=== PATIENT | female | born 1970 | race Caucasian/White ===

== ENCOUNTER 2020-10-14 10:48 | Emergency (ER) | payer MEDICAID, SELFPAY ==
[2020-10-14 10:59] VITALS: BP 112/79; PULSE 87; RESP 18; TEMP 36.7; O2SAT 97; BMI 49.3
[2020-10-14 11:35] LABS: MANUAL DIFF FLAG NO
[2020-10-14 11:36] LABS: Basophils Percent Auto 0.7 % (0-2); Eosinophils Absolute Auto 0.1 X10*3/uL (0.0-0.4); Eosinophils Percent Auto 1.4 % (0-4); Hematocrit 39.4 % (37-47); Hemoglobin 12.9 g/dl (12.0-16.0); Imm Gran Abs Auto 0.02 X10*3/uL (0.00-0.03); Imm Gran Pct Auto 0.3 % (0.0-0.4); Lymphocytes Absolute Auto 1.9 X10*3/uL (1.2-4.9); Lymphocytes Percent Auto 33.1 % (20-40); Mean Corpuscular HGB Conc 32.7 g/dl (31.0-35.0); Mean Corpuscular Hemoglobin 27.5 pg (27.0-33.0); Mean Platelet Volume 10.8 fL (9.4-12.3); Monocytes Absolute Auto 0.4 X10*3/uL (0.1-1.2); Monocytes Percent Auto 6.3 % (2-11); Neutrophils Absolute Auto 3.3 X10*3/uL (2.0-8.3); Neutrophils Percent Auto 58.2 % (45-73); Platelet Count 222 X10*3/uL (160-400); Red Blood Count 4.69 X10*6/uL (4.20-5.50); Red Cell Distribution Width 12.7 % (11.0-16.0); White Blood Count 5.7 X10*3/uL (4.8-10.8)
[2020-10-14 12:04] LABS: Anion Gap 11 (12-20); Blood Urea Nitrogen 9 mg/dL (9-16); Calcium 9.2 mg/dL (8.4-10.2); Carbon Dioxide 25 mmol/L (22-29); Chloride 108 mmol/L (96-108); Creatinine Clr Calc Pharmacy 116.4; Estimated Glomerular Filt Rate > 60; Glucose Random 95 mg/dL (60-115); Potassium 4.1 mmol/L (3.3-5.1); Sodium 140 mmol/L (135-145)
== END 2020-10-14 14:01 | disposition left against medical advice (07) ==
PROVIDERS: Emergency Provider Emergency Medicine; PCP Internal Medicine
DX: R20.0 Anesthesia of skin (principal); R51.9 Headache, unspecified
CPT/HCPCS: 36415; 80048; 85025; 99282; 99283

== ENCOUNTER 2022-05-06 15:26 | Outpatient (REF) | payer MEDICARE, MEDICAID, SELFPAY ==
[2022-05-06 16:25] LABS: Influenza A PCR NEGATIVE (Negative); Influenza B PCR NEGATIVE (Negative); Resp Syncy Virus RNA Qual PCR NEGATIVE (Negative); SARS COV2 PCR INHOUSE NEGATIVE (Negative)
== END 2022-05-06 15:27 | disposition home or self-care (01) ==
LOC: HO.LNP 15:26
PROVIDERS: Visit Provider Physician Assistant Medical
DX: Z20.822 Contact with and (suspected) exposure to COVID-19 (principal); R05.9 Cough, unspecified
CPT/HCPCS: 0241U

== ENCOUNTER 2023-07-18 19:00 | Emergency (ER) | payer OTHER, SELFPAY ==
--- NOTE | ~2023-07-18 | CT_ITS ---
EXAMINATION: CT head/brain wo IV con CLINICAL INFORMATION: Reason for Exam headache COMPARISON: None. TECHNIQUE: Contiguous axial imaging was performed from the skull base to vertex without intravenous contrast. Sagittal and coronal reformatted images were obtained. This CT examination was performed using dose optimization techniques as appropriate, variously including the following: * Automated exposure control * Adjustment of mA and/or kV according to patient size (this includes techniques or standardized protocols for targeted exams where dose is matched to indication/reason for exam; i.e. extremities or head) Use of iterative reconstruction technique DLP: 642 mGy-cm FINDINGS: There is no evidence of acute intracranial hemorrhage. No mass-effect or ventricular shift is noted. No acute, territorial loss of gardner-white differentiation. The ventricles and sulci are appropriate in size and configuration for the patient's stated age. Partially empty sella turcica. No depressed calvarial fracture. Trace scattered mucosal thickening in the partially visualized paranasal sinuses. The mastoid air cells are clear. CT/CT head/brain wo IV con IMPRESSION: No acute intracranial hemorrhage, mass effect, or midline shift.
[2023-07-18 19:03] VITALS: BP 152/116; PULSE 96; RESP 20; TEMP 36.8; O2SAT 99; BMI 54.0
--- NOTE | 2023-07-18 19:04 | ED_ITS ---
HPI - General Adult General Chief complaint: Headache Stated complaint: ref by , pain on R side of head. catscan? Time Seen by Provider: 07/19/23 00:33 History of Present Illness HPI narrative: The patient is a 52-year-old woman who says that about a week ago she developed room spinning dizziness that she thought was a form of vertigo. The following day she contacted her doctor and last Sunday she had a telehealth visit. In addition to describing room spinning dizziness she also describes some right- sided facial pain or headache. As a result of the telehealth visit on Sunday she was prescribed meclizine and Augmentin. She says that she felt later that day on Sunday but she does not think she hit her head. She attributes the fall to being dizzy. The patient says that she continued to have problems with dizziness for the next couple of days and continued to have the right-sided discomfort but yesterday the right-sided head discomfort got considerably worse and was associated with nausea and photophobia. She comes to the emergency room today complaining of a severe headache which is mostly a right-sided headache that she says is worst behind her right eye. She says she has a history of migraine headaches but it is a long time since she has had a bad migraine and she can not tell if this is a bad migraine or possibly something different. Related Data Home Medications ?Medication ?Instructions ?Recorded ?Confirmed clonidine HCl 0.1 mg tablet 0.1 mg PO TID 05/06/22 duloxetine 30 mg capsule,delayed 30 mg PO QAM 05/06/22 release duloxetine 60 mg capsule,delayed 60 mg PO BEDTIME 05/06/22 release hydroxyzine HCl 25 mg tablet 25 - 50 mg PO TID PRN anxiety 05/06/22 levothyroxine 100 mcg tablet 100 mcg PO DAILY 05/06/22 loratadine 10 mg tablet 10 mg PO DAILY 05/06/22 montelukast 10 mg tablet 10 mg PO QPM 05/06/22 topiramate 50 mg tablet 50 mg PO BID 05/06/22 Previous Rx's ?Medication ?Instructions ?Recorded amoxicillin 875 mg-potassium 1 tab PO BID #14 tabs 05/06/22 clavulanate 125 mg tablet benzonatate 100 mg capsule 100 mg PO BID-TID PRN cough #30 02/11/23 caps prednisone 20 mg tablet 40 mg (2 x 20 mg) PO DAILY 5 days 05/06/22 #10 tabs Allergies Allergy/AdvReac Type Severity Reaction Status Date / Time ibuprofen [From MOTRIN] Allergy Intermediate STOMACHE Verified 07/18/23 19:06 ACHE, ALLERGY PER PREVIOUS MD morphine [MORPHINE] Allergy Unknown NAUSEA & Verified 07/18/23 19:06 VOMITING Review of Systems 2 Review of Systems: Yes all other systems are reviewed and are negative [facility] Past Medical History Medical History Back pain Migraines Obesity Surgical History History of cholecystectomy History of Jose-en-Y gastric bypass Hx of appendectomy Social History Social History Advance Directives: No Advance Directives Information Provided: Yes Do you have a plan to hurt others: No Plan Physical Exam ED Vital Signs: Vital Signs - 24 hr 07/18/23 19:03 07/19/23 00:00 07/19/23 02:00 Temperature 98.3 F 97.6 F 97.9 F Pulse Rate 96 92 92 Respiratory Rate 20 18 16 Blood Pressure 152/116 H 146/92 H 135/76 Pulse Oximetry 99 100 98 Oxygen Delivery Method Room Air Room Air Room Air 07/19/23 03:00 Temperature 97.9 F Pulse Rate 92 Respiratory Rate 16 Blood Pressure 135/76 Pulse Oximetry 98 Oxygen Delivery Method Room Air BMI result Body Mass Index 54.0 Const Other: The patient is a 52-year-old woman with a BMI 54 who was in a darkened room wearing dark glasses. She is awake and alert with a normal mental status. She does not seem overtly toxic. HENMT Other: Face is symmetrical. Mucous membranes moist. Eyes Other: Pupils are round equal, conjunctivae are clear Neck Other: Neck is supple Resp Effort & Inspection: normal respiratory effort Auscultation: clear to auscultation bilaterally Cardio Rate: regular rate Rhythm: regular rhythm Heart sounds: S1 normal heart sound present and S2 normal heart sound present GI Other: Abdomen is soft and nontender Skin Other: Skin is dry and unremarkable Neuro Other: The patient is awake and alert with a normal mental status. Cranial nerves are grossly intact. She moves her extremities symmetrically. She seems grossly neurologically intact Extrem Other: No asymmetry Course Course Course Narrative: This is an RME: Additional HPI, ROS, PE not included below will be deferred to primary provider. 52 yo f with pmhx of vertigo presents with right sided headache since last night. Went to urgent care, told to come here. Recent sinus infection. Reports nausea. Denies recent trauma. Denies cp, sob, vomiting, fevers, chills. plan- labs, imaging Medications Administered Discontinued Medications Generic Name Dose Route Start Last Admin Trade Name Darrylq PRN Reason Stop Dose Admin Diphenhydramine HCl 25 mg 07/19/23 00:47 07/19/23 01:03 Diphenhydramine Hcl 50 Mg/Ml Vial IVPUSH 07/19/23 00:48 25 mg ONCE ONE Administration Sodium Chloride 1,000 mls @ 999 mls/hr 07/19/23 01:00 07/19/23 01:03 Ns IV 07/19/23 02:00 999 mls/hr .Q1H1M KALPANA Administration Ketorolac Tromethamine 15 mg 07/19/23 00:47 07/19/23 01:03 Ketorolac Tromethamine 15 Mg/Ml Vial IVPUSH 07/19/23 00:48 15 mg ONCE ONE Administration Prochlorperazine Edisylate 10 mg 07/19/23 00:47 07/19/23 01:04 Prochlorperazine Edisylate 10 Mg/2 Ml Vial IVPUSH 07/19/23 00:48 10 mg ONCE ONE Administration Medical Decision Making Medical Decision Making MDM Narrative: The patient is a 52-year-old woman who presents with a right-sided headache associated with nausea and photophobia. Her mental status is clear. Her physical exam is unremarkable. She has a history of migraines but does not remember having a migraine this severe. The patient was treated with 10 mg of IV prochlorperazine, 10 mg of IV ketorolac, and 25 mg of IV diphenhydramine as well as a L of IV normal saline. She had an excellent response to these medications. She felt much much better. I think this suggests that this is likely a migraine syndrome. I feel she may be discharged. Lab Data 07/18/23 19:30 07/18/23 19:30 Labs: Lab Results 07/18/23 Range/Units 19:30 WBC 7.1 (4.8-10.8) X10*3/uL RBC 5.37 (4.20-5.50) X10*6/uL Hgb 14.5 (12.0-16.0) g/dl Hct 43.7 (37.0-47.0) % MCV 81.4 (80.0-98.0) fL MCH 27.0 (27.0-33.0) pg MCHC 33.2 (31.0-35.0) g/dl RDW 13.0 (11.0-16.0) % Plt Count 235 (160-400) X10*3/uL MPV 10.7 (9.4-12.3) fL Immature Gran % (Auto) 0.3 (0.0-0.4) % Neut % (Auto) 55.5 (45-73) % Lymph % (Auto) 34.7 (20-40) % Gaston % (Auto) 7.2 (2-11) % Eos % (Auto) 1.7 (0-4) % Baso % (Auto) 0.6 (0-2) % Lymph # (Auto) 2.5 (1.2-4.9) X10*3/uL Gaston # (Auto) 0.5 (0.1-1.2) X10*3/uL Eos # (Auto) 0.1 (0.0-0.4) X10*3/uL Baso # (Auto) 0.0 (0.0-0.2) X10*3/uL Abs Immat Gran (auto) 0.02 (0.00-0.03) X10*3/uL Absolute Neuts (auto) 3.9 (2.0-8.3) x10*3/uL Absolute Nucleated RBC 0.000 (0.0-0.012) X10*3/uL Nucleated RBC % (auto) 0.0 (0.0-0.2) /100WBC ESR 25 H (0-20) MM/HR Sodium 140 (135-145) mmol/L Potassium 4.1 (3.3-5.1) mmol/L Chloride 105 (96-108) mmol/L Carbon Dioxide 27 (22-29) mmol/L Anion Gap 12 (12-20) BUN 12 (9-16) mg/dL Creatinine 0.75 (0.5-1.4) mg/dL Estim Creat Clear Calc 134.7 Estimated GFR > 60 Random Glucose 98 (60-115) mg/dL Calcium 10.4 H D (8.4-10.2) mg/dL Magnesium 2.2 (1.6-2.6) mg/dL Total Bilirubin 0.3 (0.0-1.0) mg/dL AST 22 (5-31) U/L ALT 33 H (0-31) U/L Alkaline Phosphatase 107 (39-117) U/L C-Reactive Protein 0.93 H (< or = 0.50) mg/dL Total Protein 8.2 H (6.5-8.0) g/dL Albumin 4.2 (3.5-5.0) g/dL Discharge Plan Discharge Clinical Impression: Migraine headache Patient Disposition: Home, Self-Care Instructions: Migraine Headache (ED) Additional Instructions: Your headache responded well to treatment with ketorolac (also known as Toradol), prochlorperazine (also known as Compazine), and diphenhydramine (Benadryl). Since you responded so well to this group of medications it seems very likely that your headache was a migraine headache. Please rest and take it easy tonight. Please plan on following up with your regular doctor to discuss this episode further. Return to the emergency room if worse. Prescriptions: No Action duloxetine 60 mg capsule,delayed release(DR/EC) 60 mg PO BEDTIME loratadine 10 mg tablet 10 mg PO DAILY topiramate 50 mg tablet 50 mg PO BID montelukast 10 mg tablet 10 mg PO QPM levothyroxine 100 mcg tablet 100 mcg PO DAILY clonidine HCl 0.1 mg tablet 0.1 mg PO TID hydroxyzine HCl 25 mg tablet 25 - 50 mg PO TID PRN (Reason: anxiety) duloxetine 30 mg capsule,delayed release(DR/EC) 30 mg PO QAM amoxicillin-pot clavulanate 875-125 mg tablet 1 tab PO BID Qty: 14 0RF benzonatate 100 mg capsule 100 mg PO BID-TID PRN (Reason: cough) Qty: 30 0RF prednisone 20 mg tablet 40 mg PO DAILY 5 Days Qty: 10 0RF Referrals: Les Willoughby MD [Primary Care Provider] - (Migraine headache) Interventions: ED Discharge Assessment Last Done: 07/19/23 03:00 Discharge Date/Time: 07/19/23 03:01 Print Language: Citizen Of [place]
[2023-07-18 19:36] LABS: Basophils Percent Auto 0.6 % (0-2); Eosinophils Absolute Auto 0.1 X10*3/uL (0.0-0.4); Eosinophils Percent Auto 1.7 % (0-4); Hematocrit 43.7 % (37.0-47.0); Hemoglobin 14.5 g/dl (12.0-16.0); Imm Gran Abs Auto 0.02 X10*3/uL (0.00-0.03); Imm Gran Pct Auto 0.3 % (0.0-0.4); Lymphocytes Absolute Auto 2.5 X10*3/uL (1.2-4.9); Lymphocytes Percent Auto 34.7 % (20-40); MANUAL DIFF FLAG NO; Mean Corpuscular HGB Conc 33.2 g/dl (31.0-35.0); Mean Corpuscular Volume 81.4 fL (80.0-98.0); Mean Platelet Volume 10.7 fL (9.4-12.3); Monocytes Absolute Auto 0.5 X10*3/uL (0.1-1.2); Monocytes Percent Auto 7.2 % (2-11); Neutrophils Absolute Auto 3.9 x10*3/uL (2.0-8.3); Neutrophils Percent Auto 55.5 % (45-73); Platelet Count 235 X10*3/uL (160-400); Red Blood Count 5.37 X10*6/uL (4.20-5.50); White Blood Count 7.1 X10*3/uL (4.8-10.8)
[2023-07-18 20:09] LABS: Alanine Aminotransferase 33 U/L (0-31); Albumin Level 4.2 g/dL (3.5-5.0); Alkaline Phosphatase 107 U/L (39-117); Anion Gap 12 (12-20); Aspartate Amino Transferase 22 U/L (5-31); Bilirubin Total 0.3 mg/dL (0.0-1.0); Blood Urea Nitrogen 12 mg/dL (9-16); C Reactive Protein 0.93 mg/dL (< or = 0.50); Calcium 10.4 mg/dL (8.4-10.2); Carbon Dioxide 27 mmol/L (22-29); Chloride 105 mmol/L (96-108); Creatinine Clr Calc Pharmacy 134.7; Estimated Glomerular Filt Rate > 60; Glucose Random 98 mg/dL (60-115); Magnesium 2.2 mg/dL (1.6-2.6); Potassium 4.1 mmol/L (3.3-5.1); Sodium 140 mmol/L (135-145); Total Protein 8.2 g/dL (6.5-8.0)
--- NOTE | 2023-07-18 20:49 | ECG_ITS ---
Test Reason : MIGRAINE Blood Pressure : / mmHG Vent. Rate : 090 BPM Atrial Rate : 090 BPM P-R Int : 200 ms QRS Dur : 098 ms QT Int : 386 ms P-R-T Axes : 027 002 -12 degrees QTc Int : 472 ms Normal sinus rhythm Moderate voltage criteria for LVH, may be normal variant ( R in aVL , Eliezer product ) Nonspecific T wave abnormality Prolonged QT Abnormal ECG When compared with ECG of 12-DEC-2011 10:47, Nonspecific T wave abnormality now evident in Lateral leads Referred By: Gissel David Electronically Signed By:KELSEY PETERSON MD
--- NOTE | 2023-07-18 21:44 | MHC.EDTECH ---
Called patient for EKG but patient was in CT scan
[2023-07-18 22:35] LABS: Erythrocyte Sedimentation Rate 25 MM/HR (0-20)
[2023-07-19] VITALS: BP 146/92; PULSE 92; RESP 18; TEMP 36.4; O2SAT 100
[2023-07-19] MEDS: 0.9 % Sodium Chloride 1,000 ML 999 ML IV (01:03)
[2023-07-19] MEDS: Ketorolac Tromethamine 15 MG/ML VIAL IVPUSH (01:03)
[2023-07-19] MEDS: diphenhydrAMINE HCL 50 MG/ML VIAL 25 MG IVPUSH (01:03)
[2023-07-19] MEDS: Prochlorperazine Edisylate 10 MG/2 ML VIAL IVPUSH (01:04)
[2023-07-19 02:00] VITALS: BP 135/76; PULSE 92; RESP 16; TEMP 36.6; O2SAT 98
[2023-07-19 03:00] VITALS: BP 135/76; PULSE 92; RESP 16; TEMP 36.6; O2SAT 98
== END 2023-07-19 03:01 | disposition home or self-care (01) ==
PROVIDERS: Physician Assistant; Emergency Provider Emergency Medicine; PCP Internal Medicine
DX: G43.909 Migraine, unspecified, not intractable, without status migrainosus (principal); R42 Dizziness and giddiness; R94.31 Abnormal electrocardiogram [ECG] [EKG]; Z79.899 Other long term (current) drug therapy
CPT/HCPCS: 36415; 70450; 80053; 83735; 85025; 85652; 86140; 93005; 96374; 96375; 99284; J0737; J1200; J1885

== ENCOUNTER → 2023-07-18 20:49 | Outpatient (BNV) | payer OTHER, SELFPAY | PROVIDERS: Emergency Provider Emergency Medicine; PCP Internal Medicine; Visit Provider Internal Medicine Cardiovascular Disease | DX: I45.81 Long QT syndrome (principal) | CPT/HCPCS: 93010 ==